=== PATIENT | male | born 1995 | race Two or more races ===

== ENCOUNTER 2022-05-16 22:47 | Emergency (ER) | payer SELFPAY | END 2022-05-16 22:55 | disposition left against medical advice (07) | LOC: MW.ED 22:47 | DX: F10.10 Alcohol abuse, uncomplicated (principal) | CPT/HCPCS: 99284 ==

== ENCOUNTER 2022-11-24 14:36 | Inpatient (IN) | payer SELFPAY ==
[2022-11-24] MEDS ORDERED: Ondansetron 4 MG/2 ML SDV IVPUSH ONE (17:35)
[2022-11-24] MEDS ORDERED: Ketorolac 30 MG/ML SDV IVPUSH ONE (17:35)
[2022-11-24] MEDS ORDERED: Sodium Chloride 0.9% 1,000 ML IV ONE ×2 (17:35→20:14)
[2022-11-24 18:35] LABS: CARBON DIOXIDE,CO2 24.6 mmol/L (21.0-32.0); POTASSIUM,K 3.9 mmol/L (3.5-5.1)
[2022-11-24] MEDS ORDERED: Morphine 4 MG/ML Syringe IVPUSH ONE (18:37)
[2022-11-24 18:45] LABS: CORONAVIRUS COVID-19 NAA NEGATIVE (NEGATIVE); INFLUENZA A NAA NEGATIVE (NEGATIVE); INFLUENZA B NAA NEGATIVE (NEGATIVE); RESPIRATORY SYNCYTIAL VIR NAA NEGATIVE (NEGATIVE)
[2022-11-24] MEDS ORDERED: Iopamidol 755 MG/ML 500 ML Multipack Bottle IVPUSH STA (19:01)
[2022-11-24] MEDS ORDERED: Clindamycin Phosphate in D5W 600 MG in Premix Bag 1 BAG IV ONE ×2 (20:13)
[2022-11-24] MEDS ORDERED: cefTRIAXone 1 GM in Sodium Chloride 0.9% 50 ML IV ONE ×2 (20:14→23:00)
[2022-11-24] MEDS ORDERED: Morphine 2 MG/ML SYRINGE IVPUSH PRN (22:47)
[2022-11-24] MEDS ORDERED: Acetaminophen 325 MG Tab PO PRN (22:48)
[2022-11-24] MEDS ORDERED: D5 1/2 NS w/ 20 mEq/L KCl 1,000 ML IV SCH (23:00)
[2022-11-24] MEDS ORDERED: Acetaminophen/HYDROcodone 325-5 MG Tab PO PRN (23:04)
[2022-11-24] MEDS ORDERED: Pantoprazole 40 MG in Sodium Chloride 0.9% 10 ML IVPUSH ONE (23:04)
[2022-11-25] MEDS ORDERED: Clindamycin Phosphate in D5W 600 MG in Premix Bag 1 BAG IV SCH ×2 (04:00)
[2022-11-25 07:41] LABS: HEMOGLOBIN A1C 5.2 %
[2022-11-25 07:44] LABS: CARBON DIOXIDE,CO2 27.5 mmol/L (21.0-32.0); POTASSIUM,K 3.9 mmol/L (3.5-5.1)
[2022-11-25] MEDS ORDERED: Ondansetron 4 MG/2 ML SDV IVPUSH PRN (10:29)
[2022-11-25] MEDS: Pantoprazole 40 MG in Sodium Chloride 0.9% 10 ML IVPUSH SCH (11:29)
[2022-11-25] MEDS: Enoxaparin 40 MG/0.4 ML Syringe SUBCUT SCH (11:29)
[2022-11-25] MEDS: Sodium Chloride 0.9% 1,000 ML IV SCH ×2 (11:29→20:43)
[2022-11-25] MEDS: metroNIDAZOLE/Normal Saline 500 MG in Premix Bag 1 BAG IV SCH ×3 (11:40→23:15)
[2022-11-25] MEDS ORDERED: cefTRIAXone 1 GM Vial ONE (20:34)
[2022-11-25] MEDS ORDERED: Sodium Chloride 0.9% 50 ML ONE (20:35)
[2022-11-25] MEDS ORDERED: cefTRIAXone 1 GM in Sodium Chloride 0.9% 50 ML IV SCH (21:00)
[2022-11-26 06:07] LABS: CARBON DIOXIDE,CO2 22.3 mmol/L (21.0-32.0); POTASSIUM,K 4.1 mmol/L (3.5-5.1)
[2022-11-26] MEDS: Sodium Chloride 0.9% 1,000 ML IV SCH ×2 (06:07→11:17)
[2022-11-26] MEDS: Pantoprazole 40 MG in Sodium Chloride 0.9% 10 ML IVPUSH SCH ×2 (06:08→06:34)
[2022-11-26] MEDS: metroNIDAZOLE/Normal Saline 500 MG in Premix Bag 1 BAG IV SCH (06:09)
[2022-11-26] MEDS: Enoxaparin 40 MG/0.4 ML Syringe SUBCUT SCH (10:50)
[2022-11-26] MEDS ORDERED: metroNIDAZOLE/Normal Saline 500 MG in Premix Bag 1 BAG IV SCH (14:00)
[2022-11-26] MEDS ORDERED: cefTRIAXone 1 GM in Sodium Chloride 0.9% 50 ML IV SCH (21:00)
== END 2022-11-26 12:52 | disposition home or self-care (01) | DRG 392 ==
LOC: EDBD 14:36 → MW.ED 14:36 → MW.MS 20:13 → MERGE 23:04 → OBSVTOIN 23:04
PROVIDERS: ADMIT Pediatrics; ATTEND Pediatrics
DX: K57.20 Diverticulitis of large intestine with perforation and abscess without bleeding (principal); K59.09 Other constipation; F17.200 Nicotine dependence, unspecified, uncomplicated; Z20.822 Contact with and (suspected) exposure to COVID-19
CPT/HCPCS: 0241U; 36415; 74177; 74177-26; 80048; 80053; 81003; 83036; 83690; 83735; 85025; 86140; 99221; 99232; 99238; C9113; J0696; J1650; J1885; J2270; J2405; J3480; J3490; J7030; J7050; Q9967